=== PATIENT | female | born 1980 | race Caucasian/White ===

== ENCOUNTER 2025-04-05 09:23 | Emergency (ER) | payer OTHER, SELFPAY ==
[2025-04-05] VITALS (8 sets, daily range): BP systolic 117–156; BP diastolic 81–100; PULSE 100–112; RESP 15–20; TEMP 36.5; O2SAT 92–100
--- NOTE | ~2025-04-05 | CT_ITS ---
CTA chest PE protocol Ordering provider: Zackary Andersen MD History: 45 years Female with . CP/SOA . Comparison: None. Technique: CT angiogram chest was performed following timed intravenous injection of contrast. Thin s lice axial images and reformatted coronal images were obtained. Three dimensional reformatted images of the chest were also obtained using a [employer] workstation. . Automated exposure control and iterati ve reconstruction technique were employed. The dose-length product was 910.16 mGy-cm. 100 mL Omnipaqu e 350 was given IV. Findings: PULMONARY ARTERIES: pulmonary embolism with clots seen in the distal main pulmonary arteries and in the segmental and subsegmental branches. Right ventricular strain is noted. VISUALIZED THORACIC INLET: Normal. MEDIASTINUM: Aorta/coronary arteries: The thoracic aorta is normal. Heart/other: The heart is slightly enlarged. Lymph nodes: No mediastinal or hilar adenopathy. Mediastinal paratracheal lymph node is seen measurin g 1.5 cm. LUNGS: No pulmonary nodules or masses. No infiltrates or effusions. No pneumothorax. VISUALIZED UPPER ABDOMEN: the visualized upper abdomen is normal. MUSCULOSKELETAL: Soft tissues: The superficial soft tissues are normal. Bones: Age appropriate degenerative changes of the spine. IMPRESSION: 1. Pulmonary embolism with thrombi seen in the main pulmonary arteries, segmental and subsegmental b ranches. Right ventricular strain is noted. 2. No acute lung lesions seen. Dr. Andersen knows about the result of the patient as he mentioned on calling him for the DVT study. Reviewed, dictated and finalized at location A. IMPRESSION: 1. Pulmonary embolism with thrombi seen in the main pulmonary arteries, segmen uriel and subsegmental branches. Right ventricular strain is noted. 2. No acute lung lesions seen. Dr. Andersen knows about the result of the patient as he mentioned on calling [facility] for the DVT study.
--- NOTE | ~2025-04-05 | US_ITS ---
LEFT LOWER EXTREMITY VENOUS ULTRASOUND Ordering provider: Zackary Andersen MD History: . swelling . Comparison: None. FINDINGS: --COMMON FEMORAL: Patent and free of thrombus. Normal compressibility, phasic flow and augmentation. --PROXIMAL SUPERFICIAL FEMORAL: Patent and free of thrombus. Normal compressibility, phasic flow and augmentation. --DISTAL SUPERFICIAL FEMORAL: Patent and free of thrombus. Normal compressibility, phasic flow and au gmentation. --POPLITEAL: Noncompressible suggestive of DVT. --POSTERIOR TIBIAL: Noncompressible suggestive of DVT. IMPRESSION: DVT involving the popliteal and posterior tibial veins. Dr. Andersen was notified with the result of the patient at 11:17 on April 05, 2025 Reviewed, dictated and finalized at location A.
--- NOTE | ~2025-04-05 | XR_ITS ---
XR chest 2V Ordering provider: Zackary Andersen MD History: 45 years Female with . sob . Comparison: None. FINDINGS: MEDIASTINUM: The cardiac silhouette is not enlarged. LUNGS: No effusions or pneumothorax. Minimal opacification in the left lung base which may indicate a telectasis versus pneumonia. Clinical correlation advised. OTHER: No free air under the diaphragm. IMPRESSION: Minimal opacification in the left lung base which may indicate atelectasis versus pneumonia. Reviewed, dictated and finalized at location A. IMPRESSION: Minimal opacification in the left lung base which may indicate atelectasis vers us pneumonia.
--- NOTE | 2025-04-05 09:30 | ECG_ITS ---
Test Date: 2025-04-05 09:37:19 Measurements Intervals [place] Rate: 109 P: 54 WI: 156 QRS: 15 QRSD: 110 T: 57 QT: 314 QTc: 423 Interpretive Statements SINUS TACHYCARDIA POSSIBLE LEFT ATRIAL ENLARGEMENT INCOMPLETE RIGHT BUNDLE BRANCH BLOCK LEFT VENTRICULAR HYPERTROPHY WITH ST-T CHANGE NONSPECIFIC ST & T-WAVE ABNORMALITY- INF/LAT LEADS BASELINE ARTIFACT- I, III, AVR, AVL ABNORMAL ECG No previous ECG available for comparison Electronically Signed On 04-05-2025 09:40:09 CDT by Mainor Robledo D.O.
[2025-04-05] MEDS: MORPHINE SULFATE (*CRX) 4 MG/ML INJ IV PUSH (10:23)
[2025-04-05 10:37] LABS: Basophils Absolute Auto 0.1 K/mm3 (0.0-0.1); Basophils Percent Auto 0.6 % (0.2-1.2); Eosinophils Absolute Auto 0.2 K/mm3 (0-0.3); Eosinophils Percent Auto 1.4 % (0-4.4); Hematocrit 43.8 % (37.0-47.0); Hemoglobin 14.4 g/dL (12.0-15.0); Immature Granulocyte Absolute 0.04 K/mm3 (0.00-0.031); Immature Granulocyte Percent A 0.4 % (0-0.5); Lymphocytes Absolute Auto 1.35 K/mm3 (0.9-3.2); Lymphocytes Percent Auto 12.2 % (18.3-44.2); Mean Corpuscular HGB Conc 32.9 g/dl (32-36); Mean Corpuscular Hemoglobin 29.3 pg (26-34); Mean Corpuscular Volume 89.2 fl (80-100); Mean Platelet Volume 9.3 fl (7.4-10.4); Monocytes Absolute Auto 0.6 K/mm3 (0.1-0.6); Monocytes Percent Auto 5.1 % (2.6-8.5); Neutrophils Absolute Auto 8.9 K/mm3 (1.3-6.7); Neutrophils Percent Auto 80.3 % (45.5-73.1); Platelet Count Result 285 k/mm3 (150-375); Red Blood Count 4.91 M/mm3 (4.2-5.4); Red Cell Distribution Width 13.6 % (11.5-14.5); White Blood Count 11.1 K/mm3 (4.5-10.0)
[2025-04-05 10:41] LABS: Alanine Aminotransferase 47 U/L (6-35); Albumin Level 4.3 g/dL (3.5-5.1); Alkaline Phosphatase 108 U/L (38-126); Anion Gap 11 mmol/L (4-12); Aspartate Amino Transferase 53 U/L (14-36); Bilirubin,Total 0.4 mg/dL (0.2-1.3); Blood Urea Nitrogen 14 mg/dL (7-17); Calcium 9.3 mg/dL (8.4-10.2); Carbon Dioxide 21 mmol/L (22-30); Chloride 107 mmol/L (98-107); Estimated CRCL calculation 86 ml/min; Estimated Glomerular Filt Rate > 60; Glucose 112 mg/dL (65-110); Sodium 139 mmol/L (137-145)
[2025-04-05 10:45] LABS: INR 1.1
[2025-04-05 10:46] LABS: Partial Thromboplastin Time 34.2 Seconds (22.3-36.8)
[2025-04-05 10:59] LABS: NT Pro B Type Natriuretic Pept 179 pg/mL (19.9-100); Troponin I 0.457 ng/mL (0.000-0.034)
--- NOTE | 2025-04-05 10:59 | ED.GENADULT ---
HPI - General Adult General Chief complaint: Shortness of Breath/Dyspnea Stated complaint: chest tightness, SOB Time Seen by Provider: 04/05/25 09:44 History of Present Illness HPI narrative: Patient is a 45-year-old female who presents ER with chest pain and shortness of breath. Sudden onset prior to arrival. Has had left-sided lower extremity swelling over the last week. No known trauma. No history DVT or PE personally or in her family. No hemoptysis. Pain is left-sided in the chest. Worse with deep breath. Has some dyspnea with exertion. Tachycardic on arrival here. Nonsmoker. She is not taking any hormones. Related Data Allergies Allergy/AdvReac Type Severity Reaction Status Date / Time levofloxacin (From LevWaveseis) Allergy Intermediate Hives Verified 04/05/25 10:14 Review of Systems Review of Systems: All systems reviewed & are unremarkable except as noted in HPI and below Constitutional: Constitutional: Reports no additional constitutional complaints ENT: Reports system reviewed and no additional complaints, except as documented Cardiovascular: Cardiovascular: Reports no additional cardiovascular complaints Respiratory: Respiratory: Reports no additional respiratory complaints Gastrointestinal: Gastrointestinal: Reports no additional gastrointestinal complaints Musculoskeletal: Musculoskeletal: Reports no additional musculoskeletal complaints [facility] Past Medical History Medical History (Updated 04/05/25 @ 14:22 by Zackary Andersen MD) Healthy female adult Surgical History Surgical History (Updated 04/05/25 @ 11:01 by Zackary Andersen MD) No history of previous surgery Exam Narrative: GENERAL: Well-appearing, obese, and in no acute distress. HEAD: Normocephalic, atraumatic. ENT: Mucous membranes moist. NECK: Supple. CHEST: Clear to auscultation. No respiratory distress. HEART: Tachycardic and regular. Normal peripheral pulses. ABDOMEN: Soft, nontender, nondistended. EXTREMITIES: Normal range of motion. 2+ edema left lower extremity. SKIN: Warm, dry, no rash. NEURO: Alert and oriented x3. PSYCH: Normal mood and affect. Course Course Emergency Course: Discussed with hospitalist service here. Concerned about the amount of clot burden and right heart strain. Would recommend transfer. Discussed with Dr. Chavez with the hospitalist service at [facility] in the [facility] system. They accept the patient for transfer. Patient wear of diagnosis and treatment plan. She has been receiving IV heparin and stable this time. She is on 2 L of nasal cannula O2. Vital Signs Vital signs: Vital Signs Temperature 97.7 F 04/05/25 10:15 Pulse Rate 110 H 04/05/25 10:15 Respiratory Rate 20 04/05/25 10:15 Blood Pressure 156/85 H 04/05/25 10:15 Pulse Oximetry 92 04/05/25 10:15 Oxygen Delivery Room Air 04/05/25 10:15 Temperature 97.7 F 04/05/25 10:15 Pulse Rate 110 H 04/05/25 13:43 Respiratory Rate 18 04/05/25 13:43 Blood Pressure 117/81 04/05/25 13:43 Pulse Oximetry 94 04/05/25 13:43 Oxygen Delivery Room Air 04/05/25 10:15 Medical Decision Making Vital Signs Vital Signs: Vital Signs Temperature 97.7 F 04/05/25 10:15 Pulse Rate 110 H 04/05/25 10:15 Respiratory Rate 20 04/05/25 10:15 Blood Pressure 156/85 H 04/05/25 10:15 Pulse Oximetry 92 04/05/25 10:15 Oxygen Delivery Room Air 04/05/25 10:15 Temperature 97.7 F 04/05/25 10:15 Pulse Rate 110 H 04/05/25 13:43 Respiratory Rate 18 04/05/25 13:43 Blood Pressure 117/81 04/05/25 13:43 Pulse Oximetry 94 04/05/25 13:43 Oxygen Delivery Room Air 04/05/25 10:15 Lab Data 04/05/25 10:24 04/05/25 10:24 Labs: Lab Results 04/05/25 Range/Units 10:24 WBC 11.1 H (4.5-10.0) K/mm3 RBC 4.91 (4.2-5.4) M/mm3 Hgb 14.4 (12.0-15.0) g/dL Hct 43.8 (37.0-47.0) % MCV 89.2 (80-100) fl MCH 29.3 (26-34) pg MCHC 32.9 (32-36) g/dl RDW 13.6 (11.5-14.5) % Plt Count 285 (150-375) k/mm3 MPV 9.3 (7.4-10.4) fl Immature Gran % (Auto) 0.4 (0-0.5) % Neut % (Auto) 80.3 H (45.5-73.1) % Lymph % (Auto) 12.2 L (18.3-44.2) % [place] % (Auto) 5.1 (2.6-8.5) % Eos % (Auto) 1.4 (0-4.4) % Baso % (Auto) 0.6 (0.2-1.2) % Lymph # (Auto) 1.35 (0.9-3.2) K/mm3 [place] # (Auto) 0.6 (0.1-0.6) K/mm3 Eos # (Auto) 0.2 (0-0.3) K/mm3 Baso # (Auto) 0.1 (0.0-0.1) K/mm3 Abs Immat Gran (auto) 0.04 H (0.00-0.031) K/mm3 Absolute Neuts (auto) 8.9 H (1.3-6.7) K/mm3 Absolute Nucleated RBC 0.000 (0.0-0.012) K/mm3 Nucleated RBC % 0.0 (0.0-0.2) % PT 14.0 (11.1-14.7) Seconds INR 1.1 APTT 34.2 (22.3-36.8) Seconds Sodium 139 (137-145) mmol/L Potassium 4.0 (3.4-5.0) mmol/L Chloride 107 (98-107) mmol/L Carbon Dioxide 21 L (22-30) mmol/L Anion Gap 11 (4-12) mmol/L BUN 14 (7-17) mg/dL Creatinine 0.83 (0.7-1.0) mg/dL Estim Creat Clear Calc 86 ml/min Estimated GFR > 60 (59 - ) Glucose 112 H (65-110) mg/dL Calcium 9.3 (8.4-10.2) mg/dL Total Bilirubin 0.4 (0.2-1.3) mg/dL AST 53 H (14-36) U/L ALT 47 H (6-35) U/L Alkaline Phosphatase 108 (38-126) U/L Troponin I 0.457 H* (0.000-0.034) ng/mL NT-Pro-B Natriuret Pep 179 H (19.9-100) pg/mL Total Protein 8.0 (6.3-8.2) g/dL Albumin 4.3 (3.5-5.1) g/dL ECG Data EKG #1: ECG completion date: 04/05/25 ECG completion time: 09:37 EKG Interpretation: tachycardia (109), sinus rhythm, non-specific ST changes, normal QRS, normal QT and NL axis Critical Care Time Critical Care Time Critical Care Time: Yes Total Critical Care Time: 45 Discharge Plan Discharge Clinical Impression: Pulmonary embolism, Acute deep vein thrombosis (DVT) of left lower extremity Patient Disposition: Acute Care Hospital Condition: Stable Patient Language: Ukrainian Follow-up/Referrals: Abel,MD Rivera [Primary Care Provider] -
[2025-04-05] MEDS: HEPARIN SOD/D5W 100 UNITS/ML 25,000 UNITS/250 ML BAG 13 UNITS IV CONT (11:30)
[2025-04-05] MEDS: HEPARIN SODIUM 5,000 UNITS/ML VIAL 6000 UNITS IV PUSH (11:30)
== END 2025-04-05 16:20 | disposition short-term general hospital (02) ==
PROVIDERS: Emergency Provider Emergency Medicine; PCP Internal Medicine
DX: I26.99 Other pulmonary embolism without acute cor pulmonale (principal); I82.432 Acute embolism and thrombosis of left popliteal vein; I82.442 Acute embolism and thrombosis of left tibial vein; R00.0 Tachycardia, unspecified; R94.31 Abnormal electrocardiogram [ECG] [EKG]; I45.10 Unspecified right bundle-branch block; I51.7 Cardiomegaly
CPT/HCPCS: 36415; 71046; 71275; 80053; 83880; 84484; 85025; 85610; 85730; 93005; 93971; 96365; 96366; 96375; 99291; J1644; J2270; Q9967

== ENCOUNTER 2025-06-15 17:52 | Emergency (ER) | payer OTHER, SELFPAY ==
--- NOTE | ~2025-06-15 | XR_ITS ---
EXAMINATION: XR chest 2V DATE: 06/15/2025 18:22 INDICATION: Shortness of breath TECHNIQUE: PA and lateral views of the chest were obtained. COMPARISON: Chest radiograph and CT dated 04/05/2025 FINDINGS: The lungs remain clear with no focal airspace opacities, pulmonary edema, pleural effusion or pneumothorax. The cardiomediastinal silhouette is normal. Visualized bones and soft tissues are unremarkable. IMPRESSION: 1. No acute cardiopulmonary disease. Reviewed, dictated and finalized at location A.
--- NOTE | ~2025-06-15 | CT_ITS ---
EXAMINATION: CTA chest PE protocol DATE: 06/15/2025 19:35 INDICATION: Chest pain and shortness of breath TECHNIQUE: Computed tomography (CT) pulmonary angiogram of the chest was performed with 100 mL Omnipaque-350 intravenous contrast. Additional 3D reconstructions utilizing coronal maximum intensity projection (MIP) were performed. Automated exposure control and iterative reconstruction technique were employed. The dose-length product was 838.03 mGy-cm. COMPARISON: 04/05/2025 FINDINGS: Interval resolution of the previously seen pulmonary emboli. No residual pulmonary trunk filling defects appreciated. Sensitivity mildly decreased some of the smaller subsegmental pulmonary arteries at the lung bases due to some respiratory motion. Unchanged chronic discoid atelectasis/scarring at the right middle lobe. No pneumonia, pulmonary edema, pleural effusion or pneumothorax. Heart size is normal. No pericardial effusion. Thoracic aorta is normal in caliber with no dissection. No pathologically enlarged thoracic lymphadenopathy. Mild thoracic spondylosis with bridging osteophytes at multiple levels consistent with diffuse idiopathic skeletal hyperostosis (DISH). IMPRESSION: 1. No pulmonary embolism or other acute cardiopulmonary disease. Reviewed, dictated and finalized at location A.
[2025-06-15 17:59] VITALS: BP 163/95; PULSE 94; RESP 15; TEMP 36.7; O2SAT 96
--- NOTE | 2025-06-15 18:02 | ECG_ITS ---
Test Date: 2025-06-15 18:06:57 Measurements Intervals [place] Rate: 86 P: 46 [place]: 151 QRS: 14 QRSD: 101 T: 4 QT: 351 QTc: 421 Interpretive Statements SINUS RHYTHM VOLTAGE CRITERIA FOR LVH MINIMAL Q WAVES- HIGH LATERAL LEADS NONSPECIFIC ST-T WAVE ABNORMALITY- ANT/INF LEADS BORDERLINE ECG Compared to ECG 04/05/2025 09:37:19 HEART RATE HAS DECRESAED Electronically Signed On 06-15-2025 20:22:08 CDT by Mainor Robledo D.O.
[2025-06-15 18:24] LABS: Hematocrit 41.8 % (37.0-47.0); Hemoglobin 14.0 g/dL (12.0-15.0); Immature Granulocyte Percent A 0.4 % (0-0.5); Lymphocytes Absolute Auto 1.96 K/mm3 (0.9-3.2); Mean Corpuscular HGB Conc 33.5 g/dl (32-36); Mean Corpuscular Hemoglobin 29.4 pg (26-34); Mean Corpuscular Volume 87.6 fl (80-100); Nucleated Red Blood Cells Absolute Auto 0.000 K/mm3 (0.0-0.012); Nucleated Red Blood Cells Perc 0.0 % (0.0-0.2); Platelet Count Result 323 k/mm3 (150-375); Red Blood Count 4.77 M/mm3 (4.2-5.4); White Blood Count 9.1 K/mm3 (4.5-10.0)
[2025-06-15 18:45] LABS: Alanine Aminotransferase 62 U/L (6-35); Albumin Level 4.2 g/dL (3.5-5.1); Alkaline Phosphatase 104 U/L (38-126); Anion Gap 9 mmol/L (4-12); Aspartate Amino Transferase 61 U/L (14-36); Bilirubin,Total 0.4 mg/dL (0.2-1.3); Blood Urea Nitrogen 18 mg/dL (7-17); Calcium 9.7 mg/dL (8.4-10.2); Carbon Dioxide 25 mmol/L (22-30); Chloride 103 mmol/L (98-107); Estimated CRCL calculation 85 ml/min; Estimated Glomerular Filt Rate > 60; Glucose 105 mg/dL (65-110); Potassium 4.4 mmol/L (3.4-5.0); Sodium 137 mmol/L (137-145); Total Protein 7.8 g/dL (6.3-8.2)
[2025-06-15 19:12] VITALS: BP 146/79; PULSE 85; RESP 21; O2SAT 97
--- NOTE | 2025-06-15 19:13 | ED_ITS ---
HPI - SOB/Dyspnea General Chief Complaint: Shortness of Breath/Dyspnea Stated Complaint: SOB, recent hx PE, on thinners Time Seen by Provider: 06/15/25 18:16 Source: patient Mode of arrival: ambulatory Limitations: no limitations History of Present Illness HPI Narrative: This is a 45-year-old female that presents to the emergency department for shortness of breath. Ongoing over the last couple of days. Reports she was diagnosed with a PE 2 months ago. She has been taking her anticoagulation as prescribed. She has been getting short of breath the last couple of days which concerned her and prompted her to be seen. Reports some chest tightness. Related Data Allergies Allergy/AdvReac Type Severity Reaction Status Date / Time levofloxacin (From Levaquin) Allergy Intermediate Hives Verified 04/05/25 10:14 Review of Systems 2 Review of Systems: All systems reviewed & are unremarkable except as noted in HPI and below PMFSH Past Medical History Medical History (Updated 06/15/25 @ 20:14 by Elizabeth Taylor PA-C) Healthy female adult Surgical History Surgical History (Updated 04/05/25 @ 11:01 by Zackary Andersen MD) No history of previous surgery Exam 2 Narrative: GENERAL: Well-appearing, well-nourished, and in no acute distress. HEAD: Normocephalic, atraumatic. EYES: EOMI. ENT: Nares clear, no rhinorrhea or epistaxis. Mucous membranes moist. CHEST: Clear to auscultation. No respiratory distress. No wheezes rales or rhonchi HEART: Regular rate and rhythm. No murmur heard. Normal peripheral pulses. EXTREMITIES: Normal range of motion. No edema. SKIN: Warm, dry, no rash. NEURO: No focal deficits. Alert and oriented x3. PSYCH: Normal mood and affect Course Course Emergency Course: Patient updated on her workup and agrees with plan of care Vital Signs Vital signs: Vital Signs Temperature 98.1 F 06/15/25 17:59 Pulse Rate 94 06/15/25 17:59 Respiratory Rate 15 06/15/25 17:59 Blood Pressure 163/95 H 06/15/25 17:59 Pulse Oximetry 96 06/15/25 17:59 Oxygen Delivery Room Air 06/15/25 17:59 Temperature 98.1 F 06/15/25 17:59 Pulse Rate 85 06/15/25 19:12 Respiratory Rate 21 H 06/15/25 19:12 Blood Pressure 146/79 H 06/15/25 19:12 Pulse Oximetry 97 06/15/25 19:12 Oxygen Delivery Room Air 06/15/25 17:59 MDM - SOB/Dyspnea MDM Narrative Medical decision making narrative: Patient presents the emergency department for shortness of breath ongoing over the last couple of days. She is afebrile and nontoxic appearing. Oxygen saturation is normal on room air. Cbc and metabolic panel without concerning findings. EKG without acute ST changes, her baseline troponin is negative. BNP is not elevated. CTA chest PE obtained for further evaluation. No pulmonary embolism or acute cardiopulmonary abnormality. Patient updated on her workup and agrees with plan of care. She is to follow up with her primary provider. She was given warnings to return to the ER Differential Diagnosis Differential diagnosis: Likely congestive heart failure, community acquired pneumonia and pulmonary embolism Lab Data Attestation: I reviewed the patient's lab results. 06/15/25 18:17 06/15/25 18:17 Labs: Lab Results 06/15/25 Range/Units 18:17 WBC 9.1 (4.5-10.0) K/mm3 RBC 4.77 (4.2-5.4) M/mm3 Hgb 14.0 (12.0-15.0) g/dL Hct 41.8 (37.0-47.0) % MCV 87.6 (80-100) fl MCH 29.4 (26-34) pg MCHC 33.5 (32-36) g/dl RDW 13.8 (11.5-14.5) % Plt Count 323 (150-375) k/mm3 MPV 9.4 (7.4-10.4) fl Immature Gran % (Auto) 0.4 (0-0.5) % Neut % (Auto) 66.9 (45.5-73.1) % Lymph % (Auto) 21.6 (18.3-44.2) % [place] % (Auto) 7.0 (2.6-8.5) % Eos % (Auto) 3.2 (0-4.4) % Baso % (Auto) 0.9 (0.2-1.2) % Lymph # (Auto) 1.96 (0.9-3.2) K/mm3 [place] # (Auto) 0.6 (0.1-0.6) K/mm3 Eos # (Auto) 0.3 (0-0.3) K/mm3 Baso # (Auto) 0.1 (0.0-0.1) K/mm3 Abs Immat Gran (auto) 0.04 H (0.00-0.031) K/mm3 Absolute Neuts (auto) 6.1 (1.3-6.7) K/mm3 Absolute Nucleated RBC 0.000 (0.0-0.012) K/mm3 Nucleated RBC % 0.0 (0.0-0.2) % Sodium 137 (137-145) mmol/L Potassium 4.4 (3.4-5.0) mmol/L Chloride 103 (98-107) mmol/L Carbon Dioxide 25 (22-30) mmol/L Anion Gap 9 (4-12) mmol/L BUN 18 H (7-17) mg/dL Creatinine 0.91 (0.7-1.0) mg/dL Estim Creat Clear Calc 85 ml/min Estimated GFR > 60 (59 - ) Glucose 105 (65-110) mg/dL Calcium 9.7 (8.4-10.2) mg/dL Total Bilirubin 0.4 (0.2-1.3) mg/dL AST 61 H (14-36) U/L ALT 62 H (6-35) U/L Alkaline Phosphatase 104 (38-126) U/L Troponin I < 0.012 (0.000-0.034) ng/mL NT-Pro-B Natriuret Pep 81 (19.9-100) pg/mL Total Protein 7.8 (6.3-8.2) g/dL Albumin 4.2 (3.5-5.1) g/dL Imaging Data Radiologist's impression: ITS Impressions Chest X-Ray 06/15/25 18:27 IMPRESSION: 1. No acute cardiopulmonary disease. Chest CTA 06/15/25 19:53 IMPRESSION: 1. No pulmonary embolism or other acute cardiopulmonary disease. Critical Care Time Critical Care Time Critical Care Time: No Discharge Plan Discharge Clinical Impression: Shortness of breath Patient Disposition: Home Condition: Stable Instructions: Shortness of Breath (ED) Additional Instructions: Return to the emergency department if you experience fever, chest pain, worsening shortness of breath, or any other symptoms that are concerning to you. Your blood work and imaging are re-assuring today. Your blood clots in your lungs are resolved Follow up with your primary care doctor for further evaluation Patient Language: Bengali Follow-up/Referrals: Abel,MD Rivera [Primary Care Provider]
[2025-06-15 19:41] LABS: NT Pro B Type Natriuretic Pept 81 pg/mL (19.9-100); Troponin I < 0.012 ng/mL (0.000-0.034)
[2025-06-15 21:00] VITALS: BP 150/74; PULSE 85; RESP 22; O2SAT 99
== END 2025-06-15 21:47 | disposition home or self-care (01) ==
PROVIDERS: Family Medicine; Emergency Provider Physician Assistant; PCP Internal Medicine
DX: R06.02 Shortness of breath (principal); R94.31 Abnormal electrocardiogram [ECG] [EKG]
CPT/HCPCS: 36415; 71046; 71275; 80053; 83880; 84484; 85025; 93005; 99284; Q9967